=== PATIENT | female | born 1990 | race Caucasian/White ===

== ENCOUNTER 2017-08-11 17:21 | Outpatient (CLI) | payer BC ==
[~2017-08-11] VITALS: Ht 170.2 cm; Wt 81.4 kg
[2017-08-11 17:35] VITALS: BP 114/66
[2017-08-11 17:54] LABS: SOURCE SWAB
[2017-08-11 18:38] LABS: BASOPHIL (%) 0.2 % (0-1); EOSINOPHIL (%) 0.6 % (0-5); EOSINOPHIL COUNT 0.1 K/uL (0-0.3); HEMOGLOBIN 12.7 G/DL (11.9-15.5); IMMATURE GRANULOCYTE (%) 0.9 % (0.0-0.7); LYMPHOCYTE (%) 11.9 % (15-42); LYMPHOCYTE COUNT 1.5 K/uL (1.0-2.8); MCH 32.2 PG (29.0-34.0); MCHC 34.3 G/DL (30.0-36.0); MCV 93.9 FL (83-99); MONOCYTE (%) 7.2 % (3-12); MONOCYTE COUNT 0.9 K/uL (0-0.8); NEUTROPHIL (%) 79.2 % (45-76); PLATELET COUNT 210 K/uL (156-360); RBC DIS.WIDTH-CV 13.1 % (11.8-14.6); RBC DIS.WIDTH-SD 45.1 % (39-53); RED BLOOD COUNT 3.94 M/uL (3.80-5.20); WHITE BLOOD COUNT 12.6 K/uL (4.1-10.2)
[2017-08-11 18:58] LABS: APPEARANCE SL.HAZY ((CLEAR)); BILIRUBIN NEGATIVE; BLOOD MODERATE; COLOR YELLOW ((YELLOW)); GLUCOSE (STRIP) NEGATIVE; KETONES 20; LEUKOCYTES NEGATIVE; NITRITE NEGATIVE; PROTEIN (STRIP) 30; SPECIFIC GRAVITY 1.016 (1.000-1.030); UROBILINOGEN 0.2 MG/DL (0.2-1.0)
[2017-08-11 19:03] VITALS: BP 123/69
[2017-08-11 19:38] LABS: BACTERIA NONE SEEN /HPF; EPITHELIAL CELLS RARE /HPF; MUCUS 1+ /LPF; UCUL ADDED? NO; WHITE BLOOD CELLS 0-5 /HPF (0-5)
[2017-08-11 20:08] LABS: AMPHETAMINE NEGATIVE (500 ng/mL); BARBITURATES NEGATIVE (200 ng/mL); BENZODIAZEPINES NEGATIVE (150 ng/mL); BUPRENORPHINE NEGATIVE (10 ng/mL); COCAINE NEGATIVE (150 ng/mL); METHADONE NEGATIVE (200 ng/mL); METHAMPHETAMINE NEGATIVE (500 ng/mL); OPIATES (MORPHINE) NEGATIVE (100 ng/mL); OXYCODONE NEGATIVE (100 ng/mL); PHENCYCLIDINE NEGATIVE (25 ng/mL); PROPOXYPHENE NEGATIVE (300 ng/mL); THC CANNABINOIDS NEGATIVE (50 ng/mL); TRICYCLIC ANTIDEPRESSANTS NEGATIVE (300 ng/mL)
[2017-08-11 20:26] LABS: CANDIDA DNA PROBE NEGATIVE; GARDNERELLA DNA PROBE NEGATIVE; TRICHOMONAS DNA PROBE NEGATIVE
[2017-08-11 20:56] LABS: PTT 24.6 SEC (25-37)
[2017-08-11 21:40] LABS: FIBRINOGEN 569 mg/dL (150-450)
== END 2017-08-11 22:25 | disposition home or self-care (01) ==
LOC: LDRP-OP 17:21 → 2WEST 17:22
PROVIDERS: Midwife
DX: O26.893 Other specified pregnancy related conditions, third trimester (principal); M54.9 Dorsalgia, unspecified; R10.9 Unspecified abdominal pain; O99.283 Endocrine, nutritional and metabolic diseases complicating pregnancy, third trimester; E28.2 Polycystic ovarian syndrome; O99.353 Diseases of the nervous system complicating pregnancy, third trimester; G40.909 Epilepsy, unspecified, not intractable, without status epilepticus; Z3A.34 34 weeks gestation of pregnancy
CPT/HCPCS: 59025; 81003; 85025; 85384; 85610; 85730; 87086; 87480; 87491; 87510; 87591; 87660; G0378; J2405; J7120